=== PATIENT | male | born 1965 | race African-American/Black ===

== ENCOUNTER 2017-12-12 14:12 | Emergency (ER) | payer SELFPAY ==
[~2017-12-12] VITALS: Ht 180.3 cm; Wt 81.6 kg
[2017-12-12 14:33] VITALS: BP 122/83
[2017-12-12 15:41] LABS: Urine Bacteria NONE SEEN /hpf (None Seen); Urine Blood Negative /uL (Negative); Urine Sperm PRESENT /hpf (None Seen); Urine WBC 1 /hpf (0 - 3)
== END 2017-12-12 15:54 | disposition home or self-care (01) ==
LOC: ER 14:12
DX: M79.1 Myalgia (principal); M54.9 Dorsalgia, unspecified; G89.29 Other chronic pain
CPT/HCPCS: 72100; 74176; 81001

== ENCOUNTER 2018-02-18 08:44 | Emergency (ER) | payer MEDICAID, OTHER ==
[~2018-02-18] VITALS: Ht 180.3 cm; Wt 83.9 kg
[2018-02-18 09:47] LABS: Basophils # (auto) 0.1 uL; Basophils % (auto) 1.2 % (0.0-2.0); Eosinophils # (auto) 0.2 uL; Eosinophils % (auto) 2.9 % (0.0-7.0); Hematocrit 42.6 % (41.0-53.0); Hemoglobin 14.3 g/dL (13.5-17.5); Lymphocytes # (auto) 2.1 uL; Lymphocytes % (auto) 26.7 % (10.0-50.0); Mean Corpuscular Hemoglobin 31.2 pg (28.0-32.0); Mean Corpuscular Hgb Conc. 33.6 g/dL (32.0-36.0); Mean Corpuscular Volume 92.8 fL (80.0-100.0); Monocytes # (auto) 0.4 uL; Monocytes % (auto) 5.6 % (0.0-12.0); Neutrophils # (auto) 4.9 uL; Neutrophils % (auto) 63.6 % (37.0-80.0); Platelet Count (auto) 272 10^3/uL (140-450); Red Blood Cells 4.59 10^6/uL (4.5-5.90); Red Cell Distribution Width 14.2 % (11.8-14.3); White Blood Cell 7.7 10^3/uL (4.4-10.8)
[2018-02-18] MEDS ORDERED: SODIUM CHLORIDE 0.9% 500 ML IV ONE (09:54)
[2018-02-18] MEDS ORDERED: SODIUM CHLORIDE 0.9% 1,000 ML IV ONE (09:54)
[2018-02-18] MEDS ORDERED: METOCLOPRAMIDE HCL 5MG/ml INJ 2ml VIAL IV ONE (10:00)
[2018-02-18] MEDS ORDERED: DEXAMETHASONE SOD PHOS 4 MG/1ML SDV INJ IV ONE (10:00)
[2018-02-18] MEDS ORDERED: KETOROLAC TROMETH 30 MG/ML 1ML VIAL IV ONE (10:00)
[2018-02-18 10:02] LABS: Urine WBC None Seen /hpf (0 - 3)
[2018-02-18 10:04] LABS: Alanine Aminotransferase 12 U/L (16-61); Albumin 3.5 g/dL (3.4-5.0); Anion Gap 7 (5-15); Aspartate Aminotransferase 15 U/L (15-37); BUN/Creatinine Ratio 11.9; Blood Urea Nitrogen 14 mg/dL (7-18); Calcium 8.2 mg/dL (8.5-10.1); Carbon Dioxide 23 mmol/L (21-32); Chloride 110 mmol/L (98-107); GFR African American 84 mL/min; GFR Non-African American 69 mL/min; Glucose 116 mg/dL (74-106); Potassium 4.1 mmol/L (3.5-5.1); Sodium 140 mmol/L (136-145)
[2018-02-18 10:07] LABS: Alkaline Phosphatase 92 U/L (45-117); Bilirubin, Total 0.2 mg/dL (0.2-1.0); Total Protein 7.3 g/dL (6.4-8.2)
[2018-02-18 10:10] VITALS: BP 128/90
[2018-02-18 10:23] LABS: Urine Bacteria NONE SEEN /hpf (None Seen); Urine Blood Negative /uL (Negative); Urine Mucus FEW (None Seen); Urine Specific Gravity 1.019 (1.001-1.035)
== END 2018-02-18 11:27 | disposition home or self-care (01) ==
LOC: ER 08:44
DX: M47.892 Other spondylosis, cervical region (principal); M54.12 Radiculopathy, cervical region; F12.10 Cannabis abuse, uncomplicated
CPT/HCPCS: 36415; 71046; 72125; 80053; 81001; 83735; 84484; 85025; 93005; 96374; 96375; 99285; J1100; J1885; J2765; J7030

== ENCOUNTER 2024-03-23 07:54 | Inpatient (IN) | payer OTHER ==
[~2024-03-23] VITALS: Ht 180.3 cm; Wt 92.9 kg
--- NOTE | 2024-03-23 08:07 | ECG ---
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
[2024-03-23 08:24] LABS: Basophils # (auto) 0.1 10 ^3/uL (0-0.2); Basophils % (auto) 0.6 % (0.0-2.0); Eosinophils # (auto) 0.2 10 ^3/uL (0-0.8); Lymphocytes # (auto) 2.1 10 ^3/uL (0.4-5.4); Lymphocytes % (auto) 21.5 % (10.0-50.0); Mean Corpuscular Hemoglobin 31.5 pg (28.0-32.0); Mean Corpuscular Volume 92.7 fL (80.0-100.0); Monocytes # (auto) 0.7 10 ^3/uL (0-1.3); Neutrophils # (auto) 6.6 10 ^3/uL (1.6-8.6); Neutrophils % (auto) 68.9 % (37.0-80.0); Nucleated Red Blood Cells % 0.2 %; Platelet Count (auto) 261 10^3/uL (140-450); Red Blood Cells 4.75 10^6/uL (4.5-5.90); Red Cell Distribution Width 14.2 % (11.8-14.3); White Blood Cell 9.6 10^3/uL (4.4-10.8)
--- NOTE | 2024-03-23 08:26 | ED.PDOC ---
HPI Comments 58Y M with PMHx back surgery presents to ED for chief complaint chest pain x3days. Pt described chest pain as squeezing and non-radiating. Pt states he woke up, walked down the stairs, and began to experience the chest pain and dizziness. Pt initially thought chest pain was related to cold but the cough has resolved and he is still experiencing the chest pain. Pt's PCP is Dr. Padilla. Pt smokes cigarettes. Pt denies alcohol and illicit drug use. No known allergies. Chief Complaint: Dizziness Time Seen by MD: 08:11 Primary Care Provider: BIA Allred Notes: Medications, Allergies Allergies: Coded Allergies: No Known Drug Allergy (Verified Allergy, Unknown, 12/12/17) Information Source: Patient Mode of Arrival: Ambulatory Severity: Mild Timing: Hours Duration: Since onset Location: Substernal Radiation: No Radiation Quality: Squeezing Onset: With Light Exertion Cardiac Risk Factors: Smoker PE Risk Factors: None History of: None Modifying Factors: Nothing Associated Signs and Symptoms: Other Past Medical History PAST MEDICAL HISTORY: Denies Surgical History (Other): Back surgery Family History Family History: Unknown Social History Smoker: Cigarettes Alcohol: Denies ETOH Use Drugs: Denies Drug Use Lives In: Home Constitutional: denies: chills, diaphoresis, fatigue, fever, malaise, sweats, weakness, others EENTM: denies: blurred vision, double vision, ear bleeding, ear discharge, ear drainage, ear pain, ear ringing, eye pain, eye redness, hearing loss, mouth pain, mouth swelling, nasal discharge, nose bleeding, nose congestion, nose pain, photophobia, tearing, throat pain, throat swelling, voice changes, others Respiratory: denies: cough, hemoptysis, orthopnea, SOB at rest, shortness of breath, SOB with excertion, stridor, wheezing, others Cardiovascular: reports: chest pain; denies: dizzy spells, diaphoresis, Dyspnea on exertion, edema, irregular heart beat, left arm pain, lightheadedness, palpitations, PND, syncope, others Gastrointestinal: denies: abdomen distended, abdominal pain, blood streaked bowels, constipated, diarrhea, dysphagia, difficulty swallowing, hematemesis, melena, nausea, poor appetite, poor fluid intake, rectal bleeding, rectal pain, vomiting, others Genitourinary: denies: burning, dysuria, flank pain, frequency, hematuria, inco ntinence, penile discharge, penile sore, pain, testicle pain, testicle swelling, urgency, others Neurological: reports: dizziness; denies: fainting, headache, left sided numbness, left sided weakness, numbness, paresthesia, pre-existing deficit, right sided numbness, right sided weakness, seizure, speech problems, tingling, tremors, weakness, others Musculoskeletal: denies: back pain, gout, joint pain, joint swelling, muscle pain, muscle stiffness, neck pain, others Integumetry: denies: bruises, change in color, change in hair/nails, dryness, laceration, lesions, lumps, rash, wounds, others Allergic/Immunocompromised: denies: Difficulty Healing, Frequent Infections, Hives, Itching, others Hematologic/Lymphatic: denies: anemia, blood clots, easy bleeding, easy bruising, swollen glands, others Endocrine: denies: excessive hunger, excessive sweating, excessive thirst, excessive urination, flushing, intolerance to cold, intolerance to heat, unexplained weight gain, unexplained weight loss, others Psychiatric: denies: anxiety, bipolar disorder, depression, hopeless, panic disorder, schizophrenia, sleepless, suicidal, others All Other Systems: Reviewed and Negative Physical Exam General Appearance: Moderate Distress, Normal HEENT: Normal ENT Inspection, Pharynx Normal, TMs Normal Neck: Full Range of Motion, Non-Tender, Normal, Normal Inspection Respiratory: Chest Non-Tender, Lungs Clear, No Accessory Muscle Use, No Respiratory Distress, Normal Breath Sounds Cardiovascular: No Edema, No JVD, No Murmur, No Gallop, Normal Peripheral Pulses, Regular Rate/Rhythm Breast Exam: Deferred Gastrointestinal: No Organomegaly, Non Tender, No Pulsatile Mass, Normal Bowel Sounds, Soft Genitalia: Deferred Pelvic: Deferred Rectal: Deferred Extremities: No calf tenderness, Normal capillary refill, Normal inspection, Normal range of motion, Non-tender, No pedal edema Musculoskeletal : Apperance: Normal Neurologic: Alert, eyelet machine operator II-XII nml as Tested, No Motor Deficits, Normal Affect, Normal Mood, No Sensory Deficits Cerebellar Function: Normal Reflexes: Normal Skin: Dry, Normal Color, Warm Peripheral Pulses: 3+ Radial (R), 3+ Radial (L) Lymphatic: No Adenopathy Was a procedure done? Was a procedure done?: No CP Differential Dx Differential Diagnosis: A-fib, A-Flutter, Angina, Anxiety / Panic Attack, Atrial Dysrhythmia, Electrolyte Disorder X-Ray, Labs, Meds, VS Vital Signs Date Time Temp Pulse Resp B/P (MAP) Pulse Ox O2 Delivery O2 Flow Rate FiO2 03/23/24 08:12 98.0 70 18 146/99 (115) 98 03/23/24 08:02 70 Lab Test 03/23/24 08:08 Range/Units White Blood Count 9.6 4.4-10.8 10^3/uL Red Blood Count 4.75 4.5-5.90 10^6/uL Hemoglobin 15.0 13.5-17.5 g/dL Hematocrit 44.0 41.0-53.0 % Mean Corpuscular Volume 92.7 80.0-100.0 fL Mean Corpuscular Hemoglobin 31.5 28.0-32.0 pg Mean Corpuscular Hemoglobin Concent 34.0 32.0-36.0 g/dL Red Cell Distribution Width 14.2 11.8-14.3 % Platelet Count 261 140-450 10^3/uL Mean Platelet Volume 8.1 6.9-10.8 fL Neutrophils (%) (Auto) 68.9 37.0-80.0 % Lymphocytes (%) (Auto) 21.5 10.0-50.0 % Monocytes (%) (Auto) 7.0 0.0-12.0 % Eosinophils (%) (Auto) 2.0 0.0-7.0 % Basophils (%) (Auto) 0.6 0.0-2.0 % Neutrophils # (Auto) 6.6 1.6-8.6 10 ^3/uL Lymphocytes # (Auto) 2.1 0.4-5.4 10 ^3/uL Monocytes # (Auto) 0.7 0-1.3 10 ^3/uL Eosinophils # (Auto) 0.2 0-0.8 10 ^3/uL Basophils # (Auto) 0.1 0-0.2 10 ^3/uL Nucleated Red Blood Cells 0.2 % Sodium Level Pending Potassium Level Pending Chloride Level Pending Carbon Dioxide Level Pending Anion Gap Pending Blood Urea Nitrogen Pending Creatinine Pending Glomerular Filtration Rate Calc Pending BUN/Creatinine Ratio Pending Serum Glucose Pending Calcium Level Pending Total Bilirubin Pending Aspartate Amino Transferase (AST) Pending Alanine Aminotransferase (ALT) Pending Alkaline Phosphatase Pending Troponin I High Sensitivity Pending Total Protein Pending Albumin Pending Patient alert. Complaining of chest pain. Vitals stable. Answering all questions. EKG reviewed does show changes. Continues to smoke cigarettes. Counseled patient on effects of smoking cigarettes for 15 minutes. Reviewed his history. WBC within normal limits. Hemoglobin within normal limits. Blood pressure slightly elevated. Risk factors for coronary artery disease. Explained to the patient. Continue cardiac monitoring. Time of 1ST Reevaluation: 08:41 Reevaluation 1ST: Unchanged Patient Education/Counseling: Diagnosis, Treatment Family Education/Counseling: No Family Present Departure 1 Departure Time of Disposition: 08:28 Impression: Primary Impression: Chest pain of unknown etiology Additional Impression: Hypertension Qualified Codes: I10 - Essential (primary) hypertension Disposition: ADMITTED INPATIENT Admit to: Med Surg Condition: Guarded Critical Care Note Critical Care Time?: Yes (45 min-critical care time only) Stability Stability form required: No Heart Score Heart Score: Heart Score Response (Comments) Value History Slightly Suspicious 0 EKG Normal 0 Age 45-64 1 Risk Factors 1 or 2 risk factors 1 Troponin Normal limit 0 Total 2 I personally scribed for PJ ALBERTO MD ([email or web address]) on 03/23/24 at 08:26. Electronically submitted by Melissa Figueroa ([email or web address]). PJ ALBERTO MD Mar 23, 2024 08:26
[2024-03-23] MEDS: ASPirin 325 MG TAB PO ONE (08:30)
[2024-03-23 08:34] VITALS: PULSE 65; RESP 17; O2SAT 95
[2024-03-23 08:42] LABS: Albumin 4.5 g/dL (3.2-4.8); Alkaline Phosphatase 81 U/L (46-116); Anion Gap 6 (5-15); Aspartate Aminotransferase 15 U/L (13-40); BUN/Creatinine Ratio 11.6 (10.0-20.0); Bilirubin, Total 0.4 mg/dL (0.2-1.0); Blood Urea Nitrogen 13 mg/dL (9-23); Calcium 10.1 mg/dL (8.7-10.4); Carbon Dioxide 28 mmol/L (20-31); Chloride 109 mmol/L (98-107); Glucose 94 mg/dL (74-106); Potassium 3.8 mmol/L (3.5-5.1); Sodium 143 mmol/L (136-145); Total Protein 7.2 g/dL (5.7-8.2)
[2024-03-23 08:48] LABS: Alanine Aminotransferase < 9 U/L (7-40)
--- NOTE | 2024-03-23 09:02 | ECG ---
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
[2024-03-23] MEDS: ENOXAPARIN SOD 80 MG/0.8ML SYRINGE SC ONE (09:12)
[2024-03-23 09:25] VITALS: BP 141/91; PULSE 66; RESP 18; TEMP 97.6; O2SAT 99
[2024-03-23] MEDS ORDERED: DIAZ5TAB3 PO (10:44)
[2024-03-23] MEDS ORDERED: OMEP1CAP70 PO (10:44)
[2024-03-23] MEDS ORDERED: NALO1TAB4 PO (10:44)
[2024-03-23] MEDS ORDERED: ERGO1CAP12 PO (10:44)
[2024-03-23] MEDS ORDERED: ERGOCALCIFEROL 50,000 UNIT(1.25MG) CAP PO SCH (10:45)
--- NOTE | 2024-03-23 11:00 | ECG ---
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
--- NOTE | 2024-03-23 11:03 | DVHHP2 ---
History of Present Illness Reason for Visit: #ACS History of Present Illness This is a 58Y M with PMHx back surgery presents to ED for chief complaint chest pain associated with diaphoresis x4 days. Pt described chest pain as squeezing and non-radiating. Pt states he woke up, walked down the stairs, and began to experience the chest pain and dizziness. Pt initially thought chest pain was related to cold but the cough has resolved and he is still experiencing the chest pain. The patient rates pain as 10/10 on pain scale one through 10. Upon evaluation in the patient denied chest pain at the time. He states no recent injury or trauma to his chest, illicit drug use but does complain of increased life stressors. He denied having any of these symptoms in the past and would like to be further evaluated and treated. The patient we will be admitted under hospitalist care to the telemetry unit for continuous monitoring. The patient denies headache, nausea, vomiting, dizziness, shortness of breath, abdominal pain, diarrhea, constipation and other associated symptoms. The plan has been discussed with the patient and primary RN in which all questions concerns have been addressed. Pulmonary: Asthma, COPD Past Surgical History Back surgery Family History: None Smoke: <1 pack per day ALCOHOL: none Drugs: None Lives: with Family Domestic Violence: Neg Review of Systems Constitutional: Yes: Sweats Cardiovascular: Chest Pain Allergies: Coded Allergies: No Known Drug Allergy (Verified Allergy, Unknown, 12/12/17) Medications Current Medications Medications Dose Ordered Sig/Cris Route Start Time Stop Time Status Last Admin Dose Admin Sodium Chloride 1,000 ml @ 60 mls/hr [id number] IV 03/23/24 10:45 UNV Enoxaparin Sodium 40 mg DAILY SC 03/24/24 10:00 UNV Acetaminophen 650 mg Q6HP PRN PO 03/23/24 10:45 UNV Nitroglycerin 0.4 mg Q5MINP PRN SL 03/23/24 10:45 UNV Morphine Sulfate 2 mg Q30M PRN IV 03/23/24 10:45 UNV Diazepam 5 mg HS PO 03/23/24 22:00 UNV Ergocalciferol 50,000 unit QWEEKLY PO 03/23/24 10:45 UNV Patient Own Medication 1 cap BID PO 03/23/24 22:00 UNV Exam Vital Signs Vital Signs Date Time Temp Pulse Resp B/P (MAP) Pulse Ox O2 Delivery O2 Flow Rate FiO2 03/23/24 09:25 97.6 66 18 141/91 (108) 99 97.6 03/23/24 08:34 Room Air* 0 21 General Appearance: Alert, Oriented X3, Cooperative HEENT: Atraumatic, PERRLA, EOMI, Mucous membr. moist/pink Respiratory: Clear to auscultation, Normal air movement Cardiovascular: Normal S1, Normal S2, No murmurs Abdominal: Normal bowel sounds, Soft, No tenderness, No hepatospenomegaly, No masses Extremities: No clubbing, No cyanosis, No edema, Normal pulses, No tenderness/swelling Skin: No rashes, No breakdown Neuro: Normal gait, Normal speech, Strength at 5/5 X4 ext, Sensation intact, Cranial nerves 3-12 NL, Reflexes 2+ Psych/Mental Status: Mental status NL Labs/Xrays Labs Test 03/23/24 09:01 03/23/24 08:08 Range/Units Troponin I High Sensitivity 60 *H </=54 ng/L White Blood Count 9.6 4.4-10.8 10^3/uL Red Blood Count 4.75 4.5-5.90 10^6/uL Hemoglobin 15.0 13.5-17.5 g/dL Hematocrit 44.0 41.0-53.0 % Mean Corpuscular Volume 92.7 80.0-100.0 fL Mean Corpuscular Hemoglobin 31.5 28.0-32.0 pg Mean Corpuscular Hemoglobin Concent 34.0 32.0-36.0 g/dL Red Cell Distribution Width 14.2 11.8-14.3 % Platelet Count 261 140-450 10^3/uL Mean Platelet Volume 8.1 6.9-10.8 fL Neutrophils (%) (Auto) 68.9 37.0-80.0 % Lymphocytes (%) (Auto) 21.5 10.0-50.0 % Monocytes (%) (Auto) 7.0 0.0-12.0 % Eosinophils (%) (Auto) 2.0 0.0-7.0 % Basophils (%) (Auto) 0.6 0.0-2.0 % Neutrophils # (Auto) 6.6 1.6-8.6 10 ^3/uL Lymphocytes # (Auto) 2.1 0.4-5.4 10 ^3/uL Monocytes # (Auto) 0.7 0-1.3 10 ^3/uL Eosinophils # (Auto) 0.2 0-0.8 10 ^3/uL Basophils # (Auto) 0.1 0-0.2 10 ^3/uL Nucleated Red Blood Cells 0.2 % Sodium Level 143 136-145 mmol/L Potassium Level 3.8 3.5-5.1 mmol/L Chloride Level 109 H 98-107 mmol/L Carbon Dioxide Level 28 20-31 mmol/L Anion Gap 6 5-15 Blood Urea Nitrogen 13 9-23 mg/dL Creatinine 1.12 0.700-1.30 mg/dL Glomerular Filtration Rate Calc 77 >90 mL/min BUN/Creatinine Ratio 11.6 10.0-20.0 Serum Glucose 94 74-106 mg/dL Calcium Level 10.1 8.7-10.4 mg/dL Total Bilirubin 0.4 0.2-1.0 mg/dL Aspartate Amino Transferase (AST) 15 13-40 U/L Alanine Aminotransferase (ALT) < 9 7-40 U/L Alkaline Phosphatase 81 46-116 U/L Total Protein 7.2 5.7-8.2 g/dL Albumin 4.5 3.2-4.8 g/dL Assessment/Plan Assessment/Plan ACS---patient's complaint of 10/10 chest pain described as squeezing in nature associated with diaphoresis without radiation x4 days No recent injury/trauma/illicit drug use Life stressor present No previous cardiac workup History of asthma and COPD current smoker less than one pack of cigarette a day Admit to telemetry unit for continuous monitoring Troponin 55, 60 pending 3rd Reviewed CBC within normal limits Reviewed BMP which is normal Cardiology consult with Dr. Melendrez has been initiated--? Stress test TSH pending Lipid panel pending Aspirin now and daily Echocardiogram pending Reconcile home meds DVT prophylaxis PUD prophylaxis not indicated no history of GERD Labs in a.m. Discussed plan of care with the patient in which all questions concerns have been addressed Plan discussed with: Patient My Orders Orders - PENNY WOOD Procedure Category Date Status Time * Cardiology Consult CONS 03/23/24 Transmitted 10:09 Drug Screen LAB 03/23/24 Logged 10:40 Admit ADMIT 03/23/24 Transmitted 10:40 2 Gm Sodium Diet DIET 03/23/24 Transmitted Lunch Sodium Chloride 0.9% PHA 03/23/24 Logged 10:45 Enoxaparin Sodium PHA 03/24/24 Logged (Lovenox) 10:00 Complete Blood Count LAB 03/24/24 Verified 04:00 Comprehensive LAB 03/24/24 Verified Metabolic Panel 04:00 Echo 2d Mode Cardiac US 03/23/24 Logged DOP 10:40 Condition: Fair [facility] 03/23/24 In Process 10:40 Acetaminophen Tablet [facility] 03/23/24 Logged (Tylenol Tablet) 10:45 Bedrest With Bathroom [facility] 03/23/24 In Process Privileg 10:40 Nitroglycerin [facility] 03/23/24 Logged Sublingual (Ntrostat 10:45 Morphine Sulfate [facility] 03/23/24 Logged Injection 10:45 Stat Ekg For Chest [facility] 03/23/24 In Process Pain 10:40 Notify Md Of Changes [facility] 03/23/24 In Process From Base 10:40 Consumer Relations Specialist For [facility] 03/23/24 In Process 24 Hours 10:40 Emergency Dysrhythmia [facility] 03/23/24 In Process Protocol 10:40 Rhythm Strips Once [facility] 03/23/24 In Process Every Shift 10:40 Oxygen By Nasal RT 03/23/24 Transmitted Cannula 10:40 Thyroid Stimulating LAB 03/23/24 Logged Hormone 10:40 Lipid Panel LAB 03/23/24 Logged 10:42 Diazepam Tablet [facility] 03/23/24 Logged (Valium Tablet) 22:00 Ergocalciferol [facility] 03/23/24 Logged (Vitamin D 50,000 10:45 (Nf) Omeprazole [facility] 03/23/24 Logged (Omeprazole Dr) 22:00 Date of Service: Mar 23, 2024 Billing Provider: PENNY WOOD Common Visit Codes: [id number] INP/OBS CARE (HIGH) PENNY WOODP Mar 23, 2024 11:02
[2024-03-23 11:07] VITALS: PULSE 66; RESP 14; O2SAT 97
[2024-03-23] MEDS: SODIUM CHLORIDE 0.9% 1,000 ML IV SCH (11:25)
[2024-03-23 12:04] LABS: Triglycerides 149 mg/dL (< 150)
[2024-03-23 12:05] LABS: LDL Cholesterol 161 mg/dL (< 100)
[2024-03-23 12:06] LABS: Cholesterol 219 mg/dL (< 200); HDL Cholesterol 40 mg/dL (40-59)
[2024-03-23] MEDS: HYDROcodone-ACET 10/325MG TAB PO ONE (12:52)
[2024-03-23] MEDS: KETOROLAC TROMETH 30 MG/ML 1ML VIAL IV ONE (13:45)
--- NOTE | 2024-03-23 14:19 | DVH ---
CHEST RADIOGRAPH Indication:CP Technique: Single frontal view of the chest was obtained COMPARISON: None FINDINGS: Lines and Tubes: None Lungs: Clear Pleura: No effusion. No pneumothorax. Cardiomediastinal contours: Unremarkable Bones: Unremarkable IMPRESSION: No acute disease.
[2024-03-23] MEDS: NITROGLYCERIN 0.4 MG SL TAB SL PRN (16:20)
[2024-03-23 18:58] LABS: Barbiturate Scree,Urine Neg (NEGATIVE); Benzodiazephine Screen, Urine Neg (NEGATIVE); Cocaine Screen, Urine Neg (NEGATIVE); Opiate Scree,Urine Pos (NEGATIVE)
[2024-03-23 18:59] LABS: Amphetamine Screen, Urine Neg (NEGATIVE); Cannabinoid Screen, Urine Neg (NEGATIVE); Phencyclidine Screen, Urine Neg (NEGATIVE)
[2024-03-23] MEDS: HYDROcodone-ACET 10/325MG TAB PO PRN (19:19)
[2024-03-23 19:45] VITALS: PULSE 58; RESP 17; O2SAT 96
[2024-03-23] MEDS: MORPHINE SULFATE INJ 2 MG/ml SYRG IV PRN (20:28)
[2024-03-23 21:00] VITALS: BP 161/90; PULSE 63; RESP 17; TEMP 98.4; O2SAT 100
[2024-03-23] MEDS: ATORVASTATIN 20 MG TAB PO SCH (22:15)
[2024-03-23] MEDS: ENOXAPARIN SOD 100 MG/1 ML SYRINGE SC SCH (22:15)
[2024-03-23] MEDS: diazePAM 5 MG TAB PO SCH (22:15)
--- NOTE | 2024-03-23 22:38 | ECG ---
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
[2024-03-24] VITALS (8 sets, daily range): BP systolic 118–143; BP diastolic 68–93; PULSE 59–80; RESP 16–20; TEMP 97.5–98.5; O2SAT 98–100
[2024-03-24 06:34] LABS: Basophils # (auto) 0.1 10 ^3/uL (0-0.2); Basophils % (auto) 0.6 % (0.0-2.0); Eosinophils # (auto) 0.2 10 ^3/uL (0-0.8); Eosinophils % (auto) 2.3 % (0.0-7.0); Hematocrit 40.1 % (41.0-53.0); Hemoglobin 13.5 g/dL (13.5-17.5); Lymphocytes # (auto) 2.6 10 ^3/uL (0.4-5.4); Lymphocytes % (auto) 26.6 % (10.0-50.0); Mean Corpuscular Hgb Conc. 33.6 g/dL (32.0-36.0); Mean Corpuscular Volume 92.2 fL (80.0-100.0); Monocytes # (auto) 0.5 10 ^3/uL (0-1.3); Monocytes % (auto) 5.5 % (0.0-12.0); Neutrophils # (auto) 6.4 10 ^3/uL (1.6-8.6); Nucleated Red Blood Cells % 0.2 %; Platelet Count (auto) 243 10^3/uL (140-450); Red Blood Cells 4.35 10^6/uL (4.5-5.90); Red Cell Distribution Width 13.8 % (11.8-14.3); White Blood Cell 9.9 10^3/uL (4.4-10.8)
[2024-03-24 06:51] LABS: Albumin 3.9 g/dL (3.2-4.8); Alkaline Phosphatase 75 U/L (46-116); Anion Gap 7 (5-15); Aspartate Aminotransferase 11 U/L (13-40); Bilirubin, Total 0.2 mg/dL (0.2-1.0); Blood Urea Nitrogen 19 mg/dL (9-23); Calcium 9.5 mg/dL (8.7-10.4); Carbon Dioxide 23 mmol/L (20-31); Chloride 111 mmol/L (98-107); Glucose 92 mg/dL (74-106); Potassium 4.2 mmol/L (3.5-5.1); Sodium 141 mmol/L (136-145); Total Protein 5.9 g/dL (5.7-8.2)
[2024-03-24 06:52] LABS: Alanine Aminotransferase < 9 U/L (7-40)
--- NOTE | 2024-03-24 06:58 | DVHINCON2 ---
Date Seen: Mar 23, 2024 Referring Physician Micaela LEWIS Reason for Consultation NSTEMI History of Present Illness 58-year-old male with PMH for chronic lower back pain on [place] and occasional tobacco use presents to the hospital with chest pain. Patient stated that he started with cough and congestion 3 days prior and started to have greenish sputum that has been since resolving. Patient noted to become a little short of breath and had some chest tightness when laying down in bed the day prior to presentation. On the day of presentation patient noted that he was downstairs and quickly ran upstairs to grab a sweater and started to feel some chest tightness again though when he came back downstairs was sitting at the table and CP became so excruciating 02/14 that patient decided to come to the hospital. Chest tightness noted to be retrosternal, radiating to left axillary area, pressure in nature intermittent with exertion and also at rest. Denies any other cardiac symptoms of shortness of breath, palpitations, diaphoresis, lightheadedness. Patient denies being blood pressure medication was told he was prediabetic and just being treated with diet. Upon evaluation in the ER patient noted to have mildly elevated troponins trending 55, 60, 61. EKG reviewed and shows sinus rhythm, anterolateral T-wave abnormality, possible Wellen's sign. Past Medical History Chronic back pain. Past Surgical History Spine surgery Family History: Patient reports no known family medical history. Family History Denies pertinent family cardiac history Social History Occasional tobacco use. Denies alcohol or illicit drug use. Allergies: Coded Allergies: No Known Drug Allergy (Verified Allergy, Unknown, 12/12/17) Home Meds Reported Medications Naloxegol Oxalate (Movantik) 25 Mg Tab, 1 TAB PO DAILY 03/23/24 Diazepam (Diazepam) 5 Mg Tab, PO 03/23/24 Ergocalciferol (Vitamin D) 50,000 Unit Cap, 1 CAP PO QWEEKLY 03/23/24 Omeprazole (Omeprazole Dr) 20 Mg Cap, 1 CAP PO BID 03/23/24 Current Medications Current Medications Medications (Trade) Dose Ordered Sig/Cris Route PRN Reason Start Time Stop Time Status Last Admin Sodium Chloride 1,000 ml @ 60 mls/hr [id number] IV 03/23/24 10:45 03/23/24 11:25 Enoxaparin Sodium (Lovenox) 40 mg DAILY SC 03/24/24 10:00 Acetaminophen (Tylenol Tablet) 650 mg Q6HP PRN PO PAIN SCALE 1-3 OR TEMP>100.4 03/23/24 10:45 Nitroglycerin (Ntrostat Sublingual) 0.4 mg Q5MINP PRN SL FOR CHEST PAIN 03/23/24 10:45 Morphine Sulfate 2 mg Q30M PRN IV FOR CHEST PAIN 03/23/24 10:45 Diazepam (Valium Tablet) 5 mg HS PO 03/23/24 22:00 Ergocalciferol (Vitamin D 50,000 Unit) 50,000 unit QWEEKLY PO 03/23/24 10:45 Pantoprazole Sodium (Protonix Tablet) 40 mg DAILY PO 03/24/24 10:00 Aspirin 81 mg DAILY PO 03/24/24 10:00 Review of Systems Constitutional: No: Fever, Chills, Sweats, Weakness, Malaise, Other Eyes: No: Pain, Vision change, Conjunctivae inflammation, Eyelid inflammation, Other, Redness ENT: No: Ear pain, Ear discharge, Nose pain, Nose discharge, Nose congestion, Mouth pain, Mouth swelling, Throat pain, Throat swelling, Other Respiratory: No: , Dry, Shortness of breath, SOB with exertion, Wheezing, H emoptysis, Pleuritic Pain, Sputum, Wheezing, Other positive: Cough, congestion Cardiovascular: ; No: Palpitations, Orthopnea, Paroxysmal Noc. Dyspnea, Edema, Lt Headedness, Other positive: Intermittent Chest Pain Gastrointestinal: No: Nausea, Vomiting, Abdominal Pain, Diarrhea, Constipation, Melena, Hematochezia, Other Genitourinary: No Dysuria, No Frequency, No Incontinence, No Hematuria, No Retention, No Other Musculoskeletal: neck pain; No: other, shoulder pain, arm pain, back pain, hand pain, leg pain, foot pain Skin: No: Rash, Lesions, Jaundice, Bruising, Other Neurological: Other (Dizziness, headache.); No: Weakness, Numbness, Incoordination, Change in speech, Confusion, Seizures Vital Signs Vital Signs Date Time Temp Pulse Resp B/P (MAP) Pulse Ox O2 Delivery O2 Flow Rate FiO2 03/23/24 13:25 72 14 122/79 (93) 99 03/23/24 09:25 97.6 97.6 03/23/24 08:34 Room Air* 0 21 Physical Exam General appearance: Patient is well-developed, well-nourished, in no acute distress. HEENT: Exam shows: Normocephalic, atraumatic, PERRLA, EOMI Neck: Supple, no bruits Chest: Equal chest excursion bilaterally. Breath sounds rhonchi. Heart: Rhythm: Regular rate; no murmur or gallop Abdomen: Exam shows: Soft, nontender, nondistended Musculoskeletal: No clubbing, no cyanosis, no lower extremity edema Dermatology: Skin warm, moist. Neurological: Exam shows: Alert and oriented x4, normal speech Available prior records, labs, EKG, rhythm strips reviewed and interpreted Labs/Diagnostic Data Labs Test 03/23/24 11:00 03/23/24 09:01 03/23/24 08:08 Range/Units Troponin I High Sensitivity 61 *H </=54 ng/L Triglycerides Level 149 < 150 mg/dL Cholesterol Level 219 H < 200 mg/dL LDL Cholesterol 161 H < 100 mg/dL HDL Cholesterol 40 40-59 mg/dL Thyroid Stimulating Hormone (TSH) 0.83 0.55-4.78 uIU/mL White Blood Count 9.6 4.4-10.8 10^3/uL Red Blood Count 4.75 4.5-5.90 10^6/uL Hemoglobin 15.0 13.5-17.5 g/dL Hematocrit 44.0 41.0-53.0 % Mean Corpuscular Volume 92.7 80.0-100.0 fL Mean Corpuscular Hemoglobin 31.5 28.0-32.0 pg Mean Corpuscular Hemoglobin Concent 34.0 32.0-36.0 g/dL Red Cell Distribution Width 14.2 11.8-14.3 % Platelet Count 261 140-450 10^3/uL Mean Platelet Volume 8.1 6.9-10.8 fL Neutrophils (%) (Auto) 68.9 37.0-80.0 % Lymphocytes (%) (Auto) 21.5 10.0-50.0 % Monocytes (%) (Auto) 7.0 0.0-12.0 % Eosinophils (%) (Auto) 2.0 0.0-7.0 % Basophils (%) (Auto) 0.6 0.0-2.0 % Neutrophils # (Auto) 6.6 1.6-8.6 10 ^3/uL Lymphocytes # (Auto) 2.1 0.4-5.4 10 ^3/uL Monocytes # (Auto) 0.7 0-1.3 10 ^3/uL Eosinophils # (Auto) 0.2 0-0.8 10 ^3/uL Basophils # (Auto) 0.1 0-0.2 10 ^3/uL Nucleated Red Blood Cells 0.2 % Sodium Level 143 136-145 mmol/L Potassium Level 3.8 3.5-5.1 mmol/L Chloride Level 109 H 98-107 mmol/L Carbon Dioxide Level 28 20-31 mmol/L Anion Gap 6 5-15 Blood Urea Nitrogen 13 9-23 mg/dL Creatinine 1.12 0.700-1.30 mg/dL Glomerular Filtration Rate Calc 77 >90 mL/min BUN/Creatinine Ratio 11.6 10.0-20.0 Serum Glucose 94 74-106 mg/dL Calcium Level 10.1 8.7-10.4 mg/dL Total Bilirubin 0.4 0.2-1.0 mg/dL Aspartate Amino Transferase (AST) 15 13-40 U/L Alanine Aminotransferase (ALT) < 9 7-40 U/L Alkaline Phosphatase 81 46-116 U/L Total Protein 7.2 5.7-8.2 g/dL Albumin 4.5 3.2-4.8 g/dL Assessment * NSTEMI - continue trending troponins. EKG with anterior lateral ST and T-wave abnormality. Continue aspirin and statin. Follow-up echo. Recommend coronary angiogram was scheduled for Monday03/25/2024. NPO after midnight Monday03/24/2024. Continue on Lovenox full dose. * HTN - losartan. Trend * HLD - Statin * Chronic Back Pain - Management per primary team Case Discussed with Dr Melendrez. Ischemic workup with coronary angiogram. We will plan for Monday03/25/2024. Continue on aspirin and statin, full-dose Lovenox. Follow-up echo. Blood pressure management we will initiate on losartan 25 mg daily. Titrate as tolerated. Critical care, time spent: 45 minutes This medical document was created using an electronic medical record system with voice recognition software and computerized dictation system. Although this document has been carefully reviewed, there might still be some phonetic and typographical errors. Occasional wrong-word or ``sound-alike substitutions may have occurred due to the inherent limitations of voice recognition software. These areas are purely typographical due to imperfections of the software programs and do not reflect any compromise in the patient's medical care. Seng foley read the chart carefully and recognize, using context, where these substitutions have occurred. Plan discussed with: Patient Date of Service: Mar 23, 2024 Billing Provider: PAWAN SUMNER Cardiology Common Codes: [id number] INP/OBS CARE (High), [id number] CARE 30-74 MIN PAWAN SUMNER Mar 23, 2024 14:19
[2024-03-24] MEDS: ASPirin 81 mg TAB PO SCH (09:00)
[2024-03-24] MEDS: LOSARTAN POTASSIUM 25 MG TAB PO SCH (09:01)
[2024-03-24] MEDS: PANTOPRAZOLE 40 MG TAB PO SCH (09:01)
[2024-03-24] MEDS ORDERED: ENOXAPARIN SOD 40 MG/0.4 ML SYRINGE SC SCH (10:00)
--- NOTE | 2024-03-24 10:04 | DVHPN2 ---
Consult Progress Note Subjective Review of Systems: CVS:Abnormal (Continues to have intermittent Chest tightness while ambulating to bathroom. ) Other Systems: Denies SOB, Palpitations, Diaphoresis, Lightheadedness. Objective vital signs Vital Sign Date Time Temp Pulse Resp B/P (MAP) Pulse Ox O2 Delivery O2 Flow Rate FiO2 03/24/24 09:01 145/91 03/24/24 05:00 98.1 70 17 100 98.1 03/23/24 19:45 Room Air* 0 21 Total Intake and Output 03/23/24 03/23/24 03/24/24 15:00 23:00 07:00 Intake Total 180 ml 180 ml 480 ml Balance 180 ml 180 ml 480 ml medications Current Medications Medications Dose Ordered Sig/Cris Route Start Time Stop Time Status Last Admin Dose Admin Sodium Chloride 1,000 ml @ 60 mls/hr [id number] IV 03/23/24 10:45 03/24/24 09:06 60 MLS/HR Acetaminophen 650 mg Q6HP PRN PO 03/23/24 10:45 Nitroglycerin 0.4 mg Q5MINP PRN SL 03/23/24 10:45 03/23/24 16:20 0.4 MG Morphine Sulfate 2 mg Q30M PRN IV 03/23/24 10:45 03/24/24 01:55 2 MG Diazepam 5 mg HS PO 03/23/24 22:00 03/23/24 22:15 5 MG Ergocalciferol 50,000 unit QWEEKLY PO 03/23/24 10:45 Pantoprazole Sodium 40 mg DAILY PO 03/24/24 10:00 03/24/24 09:01 40 MG Aspirin 81 mg DAILY PO 03/24/24 10:00 03/24/24 09:00 81 MG Enoxaparin Sodium 80 mg Q12HR SC 03/23/24 22:00 03/24/24 09:02 80 MG Atorvastatin Calcium 40 mg HS PO 03/23/24 22:00 03/23/24 22:15 40 MG Losartan Potassium 25 mg DAILY PO 03/24/24 10:00 03/24/24 09:01 25 MG Acetaminophen/ Hydrocodone Bitart 1 tab Q8HP PRN PO 03/23/24 19:00 03/24/24 04:06 1 TAB Examination: LUNGS:Normal laboratory and microbiology Laboratory Tests 03/24/24 05:31 Test 03/24/24 05:31 Range/Units Serum Glucose 92 74-106 mg/dL Problem List/Assessment/Plan Problem List/Assessment/Plan Assessment * NSTEMI - continue trending troponins. EKG with anterior lateral ST and T-wave abnormality. Continue aspirin and statin. Follow-up echo. Recommend cardiac catheterization +/- PCI. All risks, benefits, and alternatives of cardiac catheterization explained to the patient including the risk of stroke, NV, , coronary perforation, pericardial tamponade, contrast induced nephropathy, need for emergent CABG, mechanical support, mechanical ventilation, and bleeding from vascular complications from the procedure. Patient is agreeable to proceed with procedure. NPO after midnight. Continue on Lovenox full dose. * HTN - On losartan, titrate as tolerated. Trend * HLD - Statin * Chronic Back Pain - Management per primary team Case Discussed with Dr Corey. Ischemic workup with coronary angiogram. Scheduled for tomorrow. Continue on aspirin and statin, full-dose Lovenox hold after p.m. dose. Follow-up echo. Blood pressure management continue losartan 25 mg daily. Titrate as tolerated. Critical care, time spent: 38 This medical document was created using an electronic medical record system with voice recognition software and computerized dictation system. Although this document has been carefully reviewed, there might still be some phonetic and typographical errors. Occasional wrong-word or ``sound-alike substitutions may have occurred due to the inherent limitations of voice recognition software. These areas are purely typographical due to imperfections of the software programs and do not reflect any compromise in the patient's medical care. Please read the chart carefully and recognize, using context, where these substitutions have occurred. Plan discussed with: Patient Date of Service: Mar 24, 2024 Billing Provider: SHAWNA COREY MD Common Visit Codes: [id number] INP/OBS CARE(HIGH), [id number] CARE 30-74 MIN PAWAN SUMNER [facility] Mar 24, 2024 10:04
--- NOTE | 2024-03-24 11:43 | DVHPNRES ---
Progress Note Date Seen: Mar 24, 2024 Resident Creating Document: MEGAN ARANA DELANEY Has the PT tested + for MRSA If YES, has PT been informed?: No Medical Necessity Reason Pt with a Central, PICC or Fol: No Subjective Review of Systems This is a 58-year-old male who presented to the emergency room with chest pain for 4 days. The patient reports constant central chest pain, non-radiating, squeezing, 10/10, increased with physical activity and improved with rest. He did not have such symptoms in the past. The patient has a history of sick contact with his son, who had an upper respiratory tract infection, and the patient also developed a green productive cough. He initially thought the chest pain was related to the cold, but the cough has resolved, and he is still experiencing chest pain. The patient also reports diaphoresis, nausea, and generalized weakness. He denies headache, vomiting, dizziness, shortness of breath, abdominal pain, diarrhea, constipation, and other associated symptoms. PMHx: Asthma, COPD (recommended to use inhaler, did not use) PSHx: Back surgery (due to traumatic injury) Family History: Noncontributory Social History: Current smoker (20 pack-year history) Home Medication: Hydrocodone (for back pain), naloxegol (for opioid-induced constipation), ergocalciferol Allergic History: Noncontributory The patient was seen and examined at the bedside. He is feeling better since admission but still reports chest pain during walking and going to the restroom. Patient reports: No new complaints Changes from previous H/P or p: No Changes Objective vital signs Vital Sign Date Time Temp Pulse Resp B/P (MAP) Pulse Ox O2 Delivery O2 Flow Rate FiO2 03/24/24 09:01 145/91 03/24/24 09:00 97.5 61 18 99 97.5 03/23/24 19:45 Room Air* 0 21 Total Intake and Output 03/23/24 03/23/24 03/24/24 15:00 23:00 07:00 Intake Total 180 ml 180 ml 480 ml Balance 180 ml 180 ml 480 ml medications Current Medications Medications Dose Ordered Sig/Cris Route Start Time Stop Time Status Last Admin Dose Admin Sodium Chloride 1,000 ml @ 60 mls/hr [id number] IV 03/23/24 10:45 03/24/24 09:06 60 MLS/HR Acetaminophen 650 mg Q6HP PRN PO 03/23/24 10:45 Nitroglycerin 0.4 mg Q5MINP PRN SL 03/23/24 10:45 03/23/24 16:20 0.4 MG Morphine Sulfate 2 mg Q30M PRN IV 03/23/24 10:45 03/24/24 01:55 2 MG Diazepam 5 mg HS PO 03/23/24 22:00 03/23/24 22:15 5 MG Ergocalciferol 50,000 unit QWEEKLY PO 03/23/24 10:45 Pantoprazole Sodium 40 mg DAILY PO 03/24/24 10:00 03/24/24 09:01 40 MG Aspirin 81 mg DAILY PO 03/24/24 10:00 03/24/24 09:00 81 MG Enoxaparin Sodium 80 mg Q12HR SC 03/23/24 22:00 03/24/24 23:59 03/24/24 09:02 80 MG Atorvastatin Calcium 40 mg HS PO 03/23/24 22:00 03/23/24 22:15 40 MG Acetaminophen/ Hydrocodone Bitart 1 tab Q8HP PRN PO 03/23/24 19:00 03/24/24 04:06 1 TAB Losartan Potassium 50 mg DAILY PO 03/25/24 10:00 Examination General Appearance: Alert, Oriented X3, Cooperative, No acute distress HEENT: Atraumatic, PERRLA, EOMI, Mucous membrane moist/pink Respiratory: Clear to auscultation, Normal air movement Cardiovascular: Regular rate, Normal S1, Normal S2, No murmurs, no chest wall tenderness Abdominal: Normal bowel sounds, Soft, No tenderness, No hepatospenomegaly, No masses Extremities: No clubbing, No cyanosis, No edema, Normal pulses, No tenderness/swelling Skin: No rashes, No breakdown, No significant lesion laboratory and microbiology Laboratory Tests 03/24/24 05:31 Test 03/24/24 05:31 Range/Units Serum Glucose 92 74-106 mg/dL Labs and/or images reviewed: Labs reviewed by me, Image(s) reviewed by me Problem List/Assessment/Plan Problem List/Assessment/Plan ACS, NSTEMI Aspirin 75 mg daily Atorvastatin 40 mg daily Nitroglycerin sublingually 0.4 mg Q 5 minutes p.r.n. Morphine 2 mg do 30 minute p.r.n. Losartan 50 mg daily Lovenox therapeutic dose Cardiology on board, planned for the left heart catheterization and possible PCI for tomorrow Vitamin-D deficiency Continue ergocalciferol History of COPD/asthma, stable Breathing treatment (ipratropium) as required Hyperchloremia Monitoring Dyslipidemia Continue atorvastatin History of back surgery, due to traumatic injury Follow up on outpatient basis DVT prophylax Therapeutic dose of Lovenox Diet Cardiac diet Code status Full Code Case discussed with Dr. Ramos Plan discussed with: Patient, Other (RN) Date of Service: Mar 24, 2024 Billing Provider: SIMBA RAMOS DO Common Visit Codes: [id number] INP/OBS CARE(HIGH) CADEFLORENTINMEGAN FELIZ [facility] Mar 24, 2024 11:43 SIMBA RAMOS DO Mar 26, 2024 19:39
[2024-03-24] MEDS: CLOPIDOGREL BISULFATE 75 MG TAB PO SCH (13:15)
[2024-03-24] MEDS: CLOPIDOGREL BISULFATE 75 MG TAB PO ONE (13:45)
[2024-03-24] MEDS: NTG 0.1MG/HR TOPICAL PATCH TD ONE (13:50)
[2024-03-24 14:14] LABS: INR 1.02 (0.9-1.15); Partial Thromboplastin Time 36.2 SEC (24.5-34.5); Prothrombin Time 10.8 sec (9.3-11.8)
--- NOTE | 2024-03-24 15:41 | DVHTSRES ---
Transfer Summary Transfer Summary Resident Creating Document: UNIQUE ARANAManda RESDIENT Date of Admission Mar 23, 2024 at 10:40 Date of Transfer: Mar 24, [address]-elevation HI Brief Hx & Hospital Course: Patient Summary for Transfer: Patient: 58-year-old male Chief Complaint: Chest pain for 4 days History of Present Illness: * Reports constant central chest pain, non-radiating, squeezing, 10/10, increased with physical activity and improved with rest. * History of sick contact with his grandson who had an upper respiratory tract infection; developed a green productive cough which has resolved, but chest pain persists. * Reports diaphoresis, nausea, and generalized weakness. * Denies headache, vomiting, dizziness, shortness of breath, abdominal pain, diarrhea, constipation, and other associated symptoms. * Past Medical History: Asthma, COPD (recommended to use inhaler, did not use) * Past Surgical History: Back surgery (due to traumatic injury) Diagnosis and Treatment Plan: ACS, NSTEMI: * Aspirin 75 mg daily * Atorvastatin 40 mg daily * Nitroglycerin sublingually 0.4 mg Q 5 minutes p.r.n. * Morphine 2 mg Q 30 minutes p.r.n. * Losartan 50 mg daily * Lovenox therapeutic dose Plan: * Cardiology on board, planned for left heart catheterization and possible PCI for tomorrow Transfer Status Watcher UNIQUETRINICADEADAN RESDIENT Mar 24, 2024 15:41 SIMBA RAMOS DO Mar 26, 2024 19:39
--- NOTE | 2024-03-24 19:11 | ECG ---
[facility] Test Date: 2024-03-23 Test Time: 22:43:41 Pat Name: TRE TANG Department: ER Room: 0218T Gender: M Back Sewer: PATRICIA : 1965 Requested By: CAM PÉREZ Order Number: [id number] Reading MD: Measurements Intervals Hinkle Rate: 53 P: 60 MD: 122 QRS: -7 QRSD: 110 T: 233 QT: 485 QTc: 456 Interpretive Statements Sinus rhythm RSR' in V1 or V2, right VCD or RVH Abnrm T, probable ischemia, anterolateral lds Please click the below link to view image of tracing.
[2024-03-25] VITALS (13 sets, daily range): BP systolic 104–164; BP diastolic 69–90; PULSE 55–80; RESP 12–21; TEMP 97.5–98.6; O2SAT 18–100
[2024-03-25] MEDS: DOCUSATE SOD 100 MG CAP PO ONE (06:29)
--- NOTE | 2024-03-25 07:40 | DVHSR ---
APPROVED REPORT EXAM: Two-dimensional and M-mode echocardiogram with Doppler and color Doppler. Blood Pressure: 145/91 mmHg INDICATION Chest Pain RISK FACTORS Height: 5' 11", Weight: 183 DIMENSIONS LVDd4.4 (3.8-5.7cm)LA (2D)3.4 (1.9-4.0cm)Aortic Root3.6 (2.0-3.7cm) LVDs3.0 (2.5-4.0cm)LA (MM) (1.9-4.0cm)Aortic Cusp Exc2.0 (1.5-2.0cm) EF (%) 60.0 (55-70%)Rt. Atrium3.3 (1.9-4.0cm)Asc. Aorta cm IVSd1.1 (0.7-1.1cm)RV (D) (1.8-2.4cm) PWd1.0 (0.7-1.1cm) Mitral Valve MitralMitral Stenosis E wave0.70m/sMV Mean GR.mmHg A wave1.00m/sMV Peak GR.mmHg E/A ratio0.72D MVAcm2 Aortic Valve Aortic ValveAortic Stenosis V10.90m/Ryann Mean GR.3mmHg V21.20m/Ryann Peak GR.6mmHg LVOT Diameter2.1 (1.8-2.4cm)Doppler AVA2.60cm2 Pulmonic Valve V20.50m/s Conclusion lvef 40-45% by visual estimate hypokientic apex and anteroseptum RV enlarged no sevee valve abnormalities noted
[2024-03-25] MEDS: NALOXEGOL OXALATE 25 MG PO SCH (10:00)
[2024-03-25] MEDS ORDERED: CLOPIDOGREL BISULFATE 75 MG TAB PO SCH (10:00)
[2024-03-25] MEDS: LOSARTAN POTASSIUM 50 MG TAB PO SCH (10:42)
[2024-03-25] MEDS: ACETAMINOPHEN 325 MG TAB PO PRN (10:43)
[2024-03-25] MEDS: IODIXANOL 320MG/ML 100ML BTL IV ONE (12:31)
--- NOTE | 2024-03-25 12:40 | DVHPN2 ---
Progress Note - Dictate Date Seen: Mar 25, 2024 Has the PT tested + for MRSA If YES, has PT been informed?: No Medical Necessity Reason Pt with a Central, PICC or Fol: No vital signs Vital Sign Date Time Temp Pulse Resp B/P (MAP) Pulse Ox O2 Delivery O2 Flow Rate FiO2 03/25/24 10:42 116/72 03/25/24 09:00 98.6 69 20 94 98.6 03/24/24 20:00 Room Air* 0 21 Total Intake and Output 03/24/24 03/24/24 03/25/24 15:00 23:00 07:00 Intake Total 840 ml 1334 ml Output Total 850 ml Balance 840 ml 484 ml medications Current Medications Medications Dose Ordered Sig/Cris Route Start Time Stop Time Status Last Admin Dose Admin Acetaminophen 650 mg Q6HP PRN PO 03/23/24 10:45 03/25/24 10:43 650 MG Nitroglycerin 0.4 mg Q5MINP PRN SL 03/23/24 10:45 03/23/24 16:20 0.4 MG Morphine Sulfate 2 mg Q30M PRN IV 03/23/24 10:45 03/24/24 01:55 2 MG Diazepam 5 mg HS PO 03/23/24 22:00 03/24/24 21:07 5 MG Ergocalciferol 50,000 unit QWEEKLY PO 03/23/24 10:45 Aspirin 81 mg DAILY PO 03/24/24 10:00 03/25/24 10:42 81 MG Atorvastatin Calcium 40 mg HS PO 03/23/24 22:00 03/24/24 21:07 40 MG Acetaminophen/ Hydrocodone Bitart 1 tab Q8HP PRN PO 03/23/24 19:00 03/25/24 06:29 1 TAB Losartan Potassium 50 mg DAILY PO 03/25/24 10:00 03/25/24 10:42 50 MG Patient Own Medication 1 tab DAILY PO 03/25/24 10:00 objective General Appearance: alert, no distress HEENT: EOMI, PERRLA, normal external inspect of ears, no icterus, no nasal drainage Neck: no carotid bruit, no jugular venous distention (JVD), no lymphadenopathy Chest: normal thorax Respiratory: clear to auscultation, normal air movement Cardiovascular: regular rate and rhythm, no diastolic murmur, no jugular venous distention (JVD), no rub, no systolic murmur Abdominal: soft, no hepatomegaly, no mass, no splenomegaly, no tenderness Genitourinary: grossly normal external Musculoskeletal: no joint tenderness, no swelling Extremities: normal pulses, no calf tenderness, no clubbing, no cyanosis, no edema Skin: no bruising, no jaundice, no rash Neurological: alert, No focal deficit laboratory and microbiology Laboratory Tests 03/24/24 05:31 Test 03/24/24 05:31 Range/Units Serum Glucose 92 74-106 mg/dL Problem List 1. Acute coronary syndrome Monitor, cardiology consult 2. Dizziness Monitor, echocardiogram 3. NSTEMI II Monitor, trend troponin 4. Benign essential HTN Monitor 5. Smoker Monitor, PPI 6. COPD Monitor, DVT prophylaxis 7. HLD Monitor, lipid panel Assessment/Plan Subjective Patient was not in room during assessment. Objective Patient was taken down to [facility] for acute coronary syndrome. Patient was seen by cardiology. Patient did have an NSTEMI. Plan Patient to have angiogram done by [facility]. Monitor EKG. Continue anticoagulation. Continue PPI. Plan discussed with: Patient, Other RONNY CONLEY NP Mar 25, 2024 12:40
[2024-03-25] MEDS: fentaNYL CITRATE 100 MCG/2 ML VL ONE (13:07)
[2024-03-25] MEDS: ANGIOMAX 250 MG VIAL IV ONE (13:07)
[2024-03-25] MEDS: LIDOCAINE 2%HCL (LOCAL ANESTH.) INJ 20ML MDV ONE (13:07)
[2024-03-25] MEDS: VERAPAMIL 2.5MG/ML INJ 2ML VIAL IV ONE (13:07)
[2024-03-25] MEDS: MIDAZOLAM HCL 2MG/2ML 2ml VIAL (1mg/ml) ONE (13:07)
[2024-03-25] MEDS: HEPARIN SODIUM (PORCINE) 5000 UNITS/ML 1ML VIAL ONE (13:07)
[2024-03-25] MEDS: SODIUM CHL 0.9% 50 ML ONE (13:07)
[2024-03-25] MEDS: ASPirin 81 mg TAB ONE (13:58)
[2024-03-25] MEDS: TICAGRELOR 90 MG TAB ONE (13:58)
--- NOTE | 2024-03-25 14:06 | DVHPN2 ---
Progress Note Date Seen: Mar 25, 2024 Has the PT tested + for MRSA If YES, has PT been informed?: No Medical Necessity Reason Pt with a Central, PICC or Fol: No Subjective Patient reports: Feels better Other Systems: pt doing well sp cath and pci Objective vital signs Vital Sign Date Time Temp Pulse Resp B/P (MAP) Pulse Ox O2 Delivery O2 Flow Rate FiO2 03/25/24 13:00 98.1 57 21 119/69 (86) 97 98.1 03/24/24 20:00 Room Air* 0 21 Total Intake and Output 03/24/24 03/24/24 03/25/24 15:00 23:00 07:00 Intake Total 840 ml 1334 ml Output Total 850 ml Balance 840 ml 484 ml medications Current Medications Medications Dose Ordered Sig/Cris Route Start Time Stop Time Status Last Admin Dose Admin Acetaminophen 650 mg Q6HP PRN PO 03/23/24 10:45 03/25/24 10:43 650 MG Nitroglycerin 0.4 mg Q5MINP PRN SL 03/23/24 10:45 03/23/24 16:20 0.4 MG Morphine Sulfate 2 mg Q30M PRN IV 03/23/24 10:45 03/24/24 01:55 2 MG Diazepam 5 mg HS PO 03/23/24 22:00 03/24/24 21:07 5 MG Ergocalciferol 50,000 unit QWEEKLY PO 03/23/24 10:45 Aspirin 81 mg DAILY PO 03/24/24 10:00 03/25/24 10:42 81 MG Atorvastatin Calcium 40 mg HS PO 03/23/24 22:00 03/24/24 21:07 40 MG Acetaminophen/ Hydrocodone Bitart 1 tab Q8HP PRN PO 03/23/24 19:00 03/25/24 06:29 1 TAB Losartan Potassium 50 mg DAILY PO 03/25/24 10:00 03/25/24 10:42 50 MG Patient Own Medication 1 tab DAILY PO 03/25/24 10:00 Pantoprazole Sodium 40 mg DAILY IV 03/26/24 10:00 Sennosides 8.6 mg HS PO 03/25/24 22:00 Examination: GENERAL:Abnormal, HEENT:Abnormal, LUNGS:Abnormal, CVS:Abnormal, ABDOMEN:Abnormal laboratory and microbiology Laboratory Tests 03/24/24 05:31 Test 03/24/24 05:31 Range/Units Serum Glucose 92 74-106 mg/dL Problem List/Assessment/Plan Problem List/Assessment/Plan ACS HTN HL s/p pci to 99% mid LAD stenosis cont dapt x 1 year statin beta henry monitor overnight Plan discussed with: Patient My Orders My Orders Orders - SHAWNA COREY MD Procedure Category Date Status Time Cl Left Heart Cath CL 03/25/24 Taken 07:36 Date of Service: Mar 25, 2024 Billing Provider: SHAWNA COREY MD Common Visit Codes: NOT BILLABLE SHAWNA COREY MD Mar 25, 2024 14:05
--- NOTE | 2024-03-25 14:09 | DVHOP2 ---
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 shockwave IVL, ptca 1 vessel, pci 1 vessel, conscious sedation 15-30 mins PREOPERATIVE DIAGNOSES: ACS POSTOP DIAGNOSIS: severe cad DESCRIPTION OF PROCEDURE: The patient or appropriate family signed informed consent understanding the risks, benefits and alternatives of the procedure, they wished to proceed. The patient was brought to the cardiac label sewer in n.p.o. state. The patient was prepped in a sterile fashion. Sedation was used per cardiac cath protocol. I administered 2 mL of 2% lidocaine to the right wrist. With an antegrade front wall puncture. I cannulated the right radial artery and placed a 6-Portuguese Glidesheath slender. Next, an intra-arterial spasmolytic was administered. Next, a - 5French [place] catheter andXB3 guide and were used for coronary angiogram and LVEDP measurement and pressure pullback. At the completion of procedure, all guides and wires were removed, and there were no immediate complications. FINDINGS: RCA: Moderate vessel off the right sinus of Valsalva, there is no severe flow limiting stenosis. LEFT MAIN: Moderate size left main, it bifurcates into LAD and circumflex. CIRCUMFLEX: Moderate caliber vessel coming off the left main with no flow limiting stenosis. LAD: LAD is a moderate caliber vessel coming of the left main. there is a 99% ruptured plaque with calcification noted in mid segment. INTERVENTION: We decided to proceed with coronary intervention. I started with a 6F __XB3__ Guide to intubate the LM __. Angiomax bolus and gtt was started. Following this, I decided to wire using an .014 BMW across the culprit lesion with ease. At this time, we performed balloon angioplasty with a _3 x 12 mm balloon by [employer] IVL balloon up to __3___ ATMS over __15__ seconds with __10 pulses each for total of 20 pulses__ number of inflations. Following this, I decided to place a stent using a 3.0 x 26 mm JOHN ____ stent inflated up to __18___ ATMS over 15 seconds with two separate inflations. Following this, the stent balloon removed and angio performed showing 0% residual stenosis. JAMILA pre/post: 3./3 CONCLUSIONS: 1. sp IVL and PCI to 99% mid LAD stenosis PLAN: Aggressive risk factor modification and medical management for the patient. DAPT x 1 year uninterrupted SAHWNA COREY MD Mar 25, 2024 14:09
[2024-03-25] MEDS: SENNA 8.6 MG TAB PO SCH (21:10)
[2024-03-25] MEDS: TICAGRELOR 90 MG TAB PO SCH (21:10)
[2024-03-26] VITALS (7 sets, daily range): BP systolic 117–150; BP diastolic 71–99; PULSE 65–95; RESP 16–18; TEMP 97.5–98.3; O2SAT 97–98
[2024-03-26] MEDS ORDERED: TICA90TA PO (09:56)
[2024-03-26] MEDS ORDERED: PANT40TA2 PO (09:56)
[2024-03-26] MEDS ORDERED: ATOR-507 PO (09:56)
[2024-03-26] MEDS ORDERED: ASPI-325 PO (09:56)
[2024-03-26] MEDS ORDERED: LOSA-534 PO (09:56)
[2024-03-26] MEDS ORDERED: MET25T PO (09:59)
[2024-03-26] MEDS: PANTOPRAZOLE 40 MG/10 ML VIAL INJ IV SCH (10:24)
--- NOTE | 2024-03-26 12:04 | DVHPN2 ---
Progress Note Date Seen: Mar 26, 2024 Has the PT tested + for MRSA If YES, has PT been informed?: No Medical Necessity Reason Pt with a Central, PICC or Fol: No Subjective Patient reports: Feels better Other Systems: pt doing well Objective vital signs Vital Sign Date Time Temp Pulse Resp B/P (MAP) Pulse Ox O2 Delivery O2 Flow Rate FiO2 03/26/24 10:25 146/98 03/26/24 08:05 Room Air* 0 21 03/26/24 05:00 97.5 71 18 97 97.5 Total Intake and Output 03/25/24 03/25/24 03/26/24 15:00 23:00 07:00 Intake Total 0 ml 250 ml Balance 0 ml 250 ml medications Current Medications Medications Dose Ordered Sig/Cris Route Start Time Stop Time Status Last Admin Dose Admin Acetaminophen 650 mg Q6HP PRN PO 03/23/24 10:45 03/25/24 17:48 650 MG Nitroglycerin 0.4 mg Q5MINP PRN SL 03/23/24 10:45 03/23/24 16:20 0.4 MG Morphine Sulfate 2 mg Q30M PRN IV 03/23/24 10:45 03/24/24 01:55 2 MG Diazepam 5 mg HS PO 03/23/24 22:00 03/24/24 21:07 5 MG Ergocalciferol 50,000 unit QWEEKLY PO 03/23/24 10:45 Aspirin 81 mg DAILY PO 03/24/24 10:00 03/26/24 10:24 81 MG Atorvastatin Calcium 40 mg HS PO 03/23/24 22:00 03/25/24 21:10 40 MG Acetaminophen/ Hydrocodone Bitart 1 tab Q8HP PRN PO 03/23/24 19:00 03/26/24 10:32 1 TAB Losartan Potassium 50 mg DAILY PO 03/25/24 10:00 03/26/24 10:25 50 MG Patient Own Medication 1 tab DAILY PO 03/25/24 10:00 Pantoprazole Sodium 40 mg DAILY IV 03/26/24 10:00 03/26/24 10:24 40 MG Sennosides 8.6 mg HS PO 03/25/24 22:00 03/25/24 21:10 8.6 MG Ticagrelor 90 mg BID PO 03/25/24 22:00 03/26/24 10:25 90 MG Examination: GENERAL:Abnormal, HEENT:Abnormal, LUNGS:Abnormal, CVS:Abnormal, ABDOMEN:Abnormal laboratory and microbiology Laboratory Tests 03/24/24 05:31 Test 03/24/24 05:31 Range/Units Serum Glucose 92 74-106 mg/dL Problem List/Assessment/Plan Problem List/Assessment/Plan ACS HTN HL s/p pci to 99% mid LAD stenosis cont dapt x 1 year statin beta henry dc home when medically stable fu 4 weeks Plan discussed with: Patient My Orders My Orders Orders - SHAWNA COREY MD Procedure Category Date Status Time Ticagrelor (Brilinta) PHA 03/25/24 In Process 22:00 Post Cath Vital Signs BRIT 03/25/24 In Process Q 15min Post Cath Activity BRIT 03/25/24 In Process Protocol 14:52 Communication Order ORDERS 03/25/24 Transmitted 14:52 2 Gm Sodium Diet DIET 03/25/24 Transmitted Dinner Date of Service: Mar 26, 2024 Billing Provider: SHAWNA COREY MD Common Visit Codes: NOT BILLABLE SHAWNA COREY MD Mar 26, 2024 12:04
--- NOTE | 2024-03-26 19:24 | DVHDS2 ---
Discharge Summary Date of Admission Mar 23, 2024 at 10:40 Date of Discharge: Mar 26, 2024 Labs/Diagnostic Data: Laboratory Results Test 03/24/24 13:30 03/24/24 05:31 03/23/24 18:30 03/23/24 09:01 Prothrombin Time 10.8 sec (9.3-11.8) Prothrombin Time INR 1.02 (0.9-1.15) Activated Partial Thromboplast Time 36.2 SEC (24.5-34.5) White Blood Count 9.9 10^3/uL (4.4-10.8) Red Blood Count 4.35 10^6/uL (4.5-5.90) Hemoglobin 13.5 g/dL (13.5-17.5) Hematocrit 40.1 % (41.0-53.0) Mean Corpuscular Volume 92.2 fL (80.0-100.0) Mean Corpuscular Hemoglobin 31.0 pg (28.0-32.0) Mean Corpuscular Hemoglobin Concent 33.6 g/dL (32.0-36.0) Red Cell Distribution Width 13.8 % (11.8-14.3) Platelet Count 243 10^3/uL (140-450) Mean Platelet Volume 8.7 fL (6.9-10.8) Neutrophils (%) (Auto) 65.0 % (37.0-80.0) Lymphocytes (%) (Auto) 26.6 % (10.0-50.0) Monocytes (%) (Auto) 5.5 % (0.0-12.0) Eosinophils (%) (Auto) 2.3 % (0.0-7.0) Basophils (%) (Auto) 0.6 % (0.0-2.0) Neutrophils # (Auto) 6.4 10 ^3/uL (1.6-8.6) Lymphocytes # (Auto) 2.6 10 ^3/uL (0.4-5.4) Monocytes # (Auto) 0.5 10 ^3/uL (0-1.3) Eosinophils # (Auto) 0.2 10 ^3/uL (0-0.8) Basophils # (Auto) 0.1 10 ^3/uL (0-0.2) Nucleated Red Blood Cells 0.2 % Sodium Level 141 mmol/L (136-145) Potassium Level 4.2 mmol/L (3.5-5.1) Chloride Level 111 mmol/L (98-107) Carbon Dioxide Level 23 mmol/L (20-31) Anion Gap 7 (5-15) Blood Urea Nitrogen 19 mg/dL (9-23) Creatinine 1.00 mg/dL (0.700-1.30) Glomerular Filtration Rate Calc 88 mL/min (>90) BUN/Creatinine Ratio 19.0 (10.0-20.0) Serum Glucose 92 mg/dL (74-106) Calcium Level 9.5 mg/dL (8.7-10.4) Total Bilirubin 0.2 mg/dL (0.2-1.0) Aspartate Amino Transferase (AST) 11 U/L (13-40) Alanine Aminotransferase (ALT) < 9 U/L (7-40) Alkaline Phosphatase 75 U/L (46-116) Troponin I High Sensitivity 94 ng/L (</=54) Total Protein 5.9 g/dL (5.7-8.2) Albumin 3.9 g/dL (3.2-4.8) Urine Opiates Screen Pos (NEGATIVE) Urine Fentanyl Screen Neg (NEGATIVE) Urine Barbiturates Screen Neg (NEGATIVE) Urine Phencyclidine Screen Neg (NEGATIVE) Urine Amphetamines Screen Neg (NEGATIVE) Urine Benzodiazepines Screen Neg (NEGATIVE) Urine Cocaine Screen Neg (NEGATIVE) Urine Cannabinoids Screen Neg (NEGATIVE) Triglycerides Level 149 mg/dL (< 150) Cholesterol Level 219 mg/dL (< 200) LDL Cholesterol 161 mg/dL (< 100) HDL Cholesterol 40 mg/dL (40-59) Thyroid Stimulating Hormone (TSH) 0.83 uIU/mL (0.55-4.78) Other Laboratory Tests 03/24/24 05:31 Brief Hx & Hospital Course: Patient was admitted for acute coronary syndrome. He was found to be an NSTEMI. Patient was seen by cardiology. He had an angiogram yesterday by Dr. Melendrez. Patient is status post IVL and PCI. Patient was started on dual anti platelet therapy with Aspirin and Brilinta. I did discuss plan of care with patient and patient's . Patient will have minimal weight bearing to upper extremities for the next 2 days. Patient may take 1 week off work. Patient will have uninterrupted therapy for 1 year with dual anti platelet therapy with Aspirin and Brilinta. Patient was also given a prescription for Lipitor, Losartan, and Metoprolol. Patient's total cholesterol is 219. LDL is 161. Patient will follow up with his PCP in 1 week. The patient received proper medical treatment and medications. Vital signs, Imaging and Laboratory Work was monitored. All consults recommendations were followed as provided. There were no complaints or new complaints upon discharge, all questions and concerns were answered. Patient was advised to return to the ER or call 911 if any headaches, dizziness, shortness of breath, chest pain, bleeding, fevers, or worsening of medical condition. Patient/Family was counseled about treatment plan, medications, possible side effects, patientverbalized understanding. All questions were answered to the best of my ability. The patient symptoms improved and they are okay to be DC. Condition at Discharge: Stable Final Diagnosis/Problems List Acute coronary syndrome Dizziness NSTEMI II Benign essential HTN Smoker COPD HLD Discharge Disposition: Home Discharge Instruct/Medications Diet: Cardiac 2g Na,low cholest Activity: No Restrictions, As Tolerated Follow Up/Referral: pcp 1 week cardiology 1-2 weeks Medications: ASA Brinlinta Protonix Losartan Lipitor Discharge Statement: "Patient was advised to return to the ER or call 911 if any headaches, dizziness, shortness of breath, chest pain, abdominal pain, bleeding, fevers, or worsening of medical condition. Patient was counseled about treatment plan, medications, possible side effects, patientverbalized understanding. All questions were answered to the best of my ability. This discharge took greater then 30 minutes in planning, reviewing documentation, counseling the patient, and discussing with other team members." ASSESSMENT ASSESSMENT Assessment ACS, s/p stent to mid LAD HTN High cholesterol RONNY CONLEY NP Mar 26, 2024 19:24
[2024-03-27 01:00] VITALS: BP 107/68; PULSE 69; RESP 19; TEMP 98.5; O2SAT 96
[2024-03-27 05:00] VITALS: BP 112/72; PULSE 62; RESP 17; TEMP 98.1; O2SAT 96
--- NOTE | 2024-03-27 07:31 | DVHPN2 ---
Progress Note Date Seen: Mar 27, 2024 Has the PT tested + for MRSA If YES, has PT been informed?: No Medical Necessity Reason Pt with a Central, PICC or Fol: No Subjective Other Systems: sp pci Objective vital signs Vital Sign Date Time Temp Pulse Resp B/P (MAP) Pulse Ox O2 Delivery O2 Flow Rate FiO2 03/27/24 05:00 98.1 62 17 112/72 (85) 96 98.1 03/26/24 20:00 Room Air* 0 21 Total Intake and Output 03/26/24 03/26/24 03/27/24 14:59 22:59 06:59 Intake Total 240 ml 300 ml 300 ml Balance 240 ml 300 ml 300 ml medications Current Medications Medications Dose Ordered Sig/Cris Route Start Time Stop Time Status Last Admin Dose Admin Acetaminophen 650 mg Q6HP PRN PO 03/23/24 10:45 03/25/24 17:48 650 MG Nitroglycerin 0.4 mg Q5MINP PRN SL 03/23/24 10:45 03/23/24 16:20 0.4 MG Morphine Sulfate 2 mg Q30M PRN IV 03/23/24 10:45 03/24/24 01:55 2 MG Diazepam 5 mg HS PO 03/23/24 22:00 03/24/24 21:07 5 MG Ergocalciferol 50,000 unit QWEEKLY PO 03/23/24 10:45 Aspirin 81 mg DAILY PO 03/24/24 10:00 03/26/24 10:24 81 MG Atorvastatin Calcium 40 mg HS PO 03/23/24 22:00 03/26/24 21:02 40 MG Acetaminophen/ Hydrocodone Bitart 1 tab Q8HP PRN PO 03/23/24 19:00 03/26/24 21:04 1 TAB Losartan Potassium 50 mg DAILY PO 03/25/24 10:00 03/26/24 10:25 50 MG Patient Own Medication 1 tab DAILY PO 03/25/24 10:00 Pantoprazole Sodium 40 mg DAILY IV 03/26/24 10:00 03/26/24 10:24 40 MG Sennosides 8.6 mg HS PO 03/25/24 22:00 03/26/24 21:02 8.6 MG Ticagrelor 90 mg BID PO 03/25/24 22:00 03/26/24 21:02 90 MG Examination: GENERAL:Abnormal, HEENT:Abnormal, LUNGS:Abnormal, CVS:Abnormal, ABDOMEN:Abnormal laboratory and microbiology Laboratory Tests 03/24/24 05:31 Test 03/24/24 05:31 Range/Units Serum Glucose 92 74-106 mg/dL Problem List/Assessment/Plan Problem List/Assessment/Plan ACS HTN HL s/p pci to 99% mid LAD stenosis cont dapt x 1 year statin beta henry dc home when medically stable fu 4 weeks 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
[2024-03-27 09:00] VITALS: BP 122/83; PULSE 72; RESP 20; TEMP 98.1; O2SAT 96
--- NOTE | 2024-03-27 11:05 | DVHDS2 ---
Discharge Summary Date of Admission Mar 23, 2024 at 10:40 Date of Discharge: Mar 26, 2024 Labs/Diagnostic Data: Laboratory Results Test 03/24/24 13:30 03/24/24 05:31 03/23/24 18:30 03/23/24 09:01 Prothrombin Time 10.8 sec (9.3-11.8) Prothrombin Time INR 1.02 (0.9-1.15) Activated Partial Thromboplast Time 36.2 SEC (24.5-34.5) White Blood Count 9.9 10^3/uL (4.4-10.8) Red Blood Count 4.35 10^6/uL (4.5-5.90) Hemoglobin 13.5 g/dL (13.5-17.5) Hematocrit 40.1 % (41.0-53.0) Mean Corpuscular Volume 92.2 fL (80.0-100.0) Mean Corpuscular Hemoglobin 31.0 pg (28.0-32.0) Mean Corpuscular Hemoglobin Concent 33.6 g/dL (32.0-36.0) Red Cell Distribution Width 13.8 % (11.8-14.3) Platelet Count 243 10^3/uL (140-450) Mean Platelet Volume 8.7 fL (6.9-10.8) Neutrophils (%) (Auto) 65.0 % (37.0-80.0) Lymphocytes (%) (Auto) 26.6 % (10.0-50.0) Monocytes (%) (Auto) 5.5 % (0.0-12.0) Eosinophils (%) (Auto) 2.3 % (0.0-7.0) Basophils (%) (Auto) 0.6 % (0.0-2.0) Neutrophils # (Auto) 6.4 10 ^3/uL (1.6-8.6) Lymphocytes # (Auto) 2.6 10 ^3/uL (0.4-5.4) Monocytes # (Auto) 0.5 10 ^3/uL (0-1.3) Eosinophils # (Auto) 0.2 10 ^3/uL (0-0.8) Basophils # (Auto) 0.1 10 ^3/uL (0-0.2) Nucleated Red Blood Cells 0.2 % Sodium Level 141 mmol/L (136-145) Potassium Level 4.2 mmol/L (3.5-5.1) Chloride Level 111 mmol/L (98-107) Carbon Dioxide Level 23 mmol/L (20-31) Anion Gap 7 (5-15) Blood Urea Nitrogen 19 mg/dL (9-23) Creatinine 1.00 mg/dL (0.700-1.30) Glomerular Filtration Rate Calc 88 mL/min (>90) BUN/Creatinine Ratio 19.0 (10.0-20.0) Serum Glucose 92 mg/dL (74-106) Calcium Level 9.5 mg/dL (8.7-10.4) Total Bilirubin 0.2 mg/dL (0.2-1.0) Aspartate Amino Transferase (AST) 11 U/L (13-40) Alanine Aminotransferase (ALT) < 9 U/L (7-40) Alkaline Phosphatase 75 U/L (46-116) Troponin I High Sensitivity 94 ng/L (</=54) Total Protein 5.9 g/dL (5.7-8.2) Albumin 3.9 g/dL (3.2-4.8) Urine Opiates Screen Pos (NEGATIVE) Urine Fentanyl Screen Neg (NEGATIVE) Urine Barbiturates Screen Neg (NEGATIVE) Urine Phencyclidine Screen Neg (NEGATIVE) Urine Amphetamines Screen Neg (NEGATIVE) Urine Benzodiazepines Screen Neg (NEGATIVE) Urine Cocaine Screen Neg (NEGATIVE) Urine Cannabinoids Screen Neg (NEGATIVE) Triglycerides Level 149 mg/dL (< 150) Cholesterol Level 219 mg/dL (< 200) LDL Cholesterol 161 mg/dL (< 100) HDL Cholesterol 40 mg/dL (40-59) Thyroid Stimulating Hormone (TSH) 0.83 uIU/mL (0.55-4.78) Other Laboratory Tests 03/24/24 05:31 Brief Hx & Hospital Course: Patient was admitted for acute coronary syndrome. He was found to be an NSTEMI. Patient was seen by cardiology. He had an angiogram yesterday by Dr. Melendrez. Patient is status post IVL and PCI. Patient was started on dual anti platelet therapy with Aspirin and Brilinta. I did discuss plan of care with patient and patient's . Patient will have minimal weight bearing to upper extremities for the next 2 days. Patient may take 1 week off work. Patient will have uninterrupted therapy for 1 year with dual anti platelet therapy with Aspirin and Brilinta. Patient was also given a prescription for Lipitor, Losartan, and Metoprolol. Patient's total cholesterol is 219. LDL is 161. Patient will follow up with his PCP in 1 week. The patient received proper medical treatment and medications. Vital signs, Imaging and Laboratory Work was monitored. All consults recommendations were followed as provided. There were no complaints or new complaints upon discharge, all questions and concerns were answered. Patient was advised to return to the ER or call 911 if any headaches, dizziness, shortness of breath, chest pain, bleeding, fevers, or worsening of medical condition. Patient/Family was counseled about treatment plan, medications, possible side effects, patientverbalized understanding. All questions were answered to the best of my ability. The patient symptoms improved and they are okay to be DC. Condition at Discharge: Good Final Diagnosis/Problems List Acute coronary syndrome Dizziness NSTEMI II Benign essential HTN Smoker COPD HLD Discharge Disposition: Home Discharge Instruct/Medications Diet: Cardiac 2g Na,low cholest Activity: No Restrictions, As Tolerated Follow Up/Referral: pcp 1 week cardiology 1-2 weeks Medications: ASA Brinlinta Protonix Losartan Lipitor Discharge Statement: "Patient was advised to return to the ER or call 911 if any headaches, dizziness, shortness of breath, chest pain, abdominal pain, bleeding, fevers, or worsening of medical condition. Patient was counseled about treatment plan, medications, possible side effects, patientverbalized understanding. All questions were answered to the best of my ability. This discharge took greater then 30 minutes in planning, reviewing documentation, counseling the patient, and discussing with other team members." ASSESSMENT ASSESSMENT Hospital Course Patient was admitted for acute coronary syndrome. He was found to be an NSTEMI. Patient was seen by cardiology. He had an angiogram yesterday by Dr. Melendrez. Patient is status post IVL and PCI. Patient was started on dual anti platelet therapy with Aspirin and Brilinta. I did discuss plan of care with patient and patient's . Patient will have minimal weight bearing to upper extremities for the next 2 days. Patient may take 1 week off work. Patient will have uninterrupted therapy for 1 year with dual anti platelet therapy with Aspirin and Brilinta. Patient was also given a prescription for Lipitor, Losartan, and Metoprolol. Patient's total cholesterol is 219. LDL is 161. Patient will follow up with his PCP in 1 week. The patient received proper medical treatment and medications. Vital signs, Imaging and Laboratory Work was monitored. All consults recommendations were followed as provided. There were no complaints or new complaints upon discharge, all questions and concerns were answered. Patient was advised to return to the ER or call 911 if any headaches, dizziness, shortness of breath, chest pain, bleeding, fevers, or worsening of medical condition. Patient/Family was counseled about treatment plan, medications, possible side effects, patientverbalized understanding. All questions were answered to the best of my ability. The patient symptoms improved and they are okay to be DC. Assessment Acute coronary syndromeDizzinessNSTEMI IIBenign essential HTNSmokerCOPDHLD RONNY CONLEY NP Mar 27, 2024 11:05
[2024-03-27 12:55] VITALS: BP 129/88; PULSE 81; RESP 20; TEMP 98.6; O2SAT 99
--- NOTE | 2024-03-27 17:32 | DVHPN2 ---
Progress Note - Dictate Date Seen: Mar 27, 2024 Has the PT tested + for MRSA If YES, has PT been informed?: No Medical Necessity Reason Pt with a Central, PICC or Fol: No vital signs Vital Sign Date Time Temp Pulse Resp B/P (MAP) Pulse Ox O2 Delivery O2 Flow Rate FiO2 03/27/24 12:55 98.6 81 20 129/88 (102) 99 98.6 03/27/24 08:05 Room Air* 0 21 Total Intake and Output 03/26/24 03/26/24 03/27/24 15:00 23:00 07:00 Intake Total 240 ml 300 ml 300 ml Balance 240 ml 300 ml 300 ml objective General Appearance: alert, no distress HEENT: EOMI, PERRLA, normal external inspect of ears, no icterus, no nasal drainage Neck: no carotid bruit, no jugular venous distention (JVD), no lymphadenopathy Chest: normal thorax Respiratory: clear to auscultation, normal air movement Cardiovascular: regular rate and rhythm, no diastolic murmur, no jugular venous distention (JVD), no rub, no systolic murmur Abdominal: soft, no hepatomegaly, no mass, no splenomegaly, no tenderness Genitourinary: grossly normal external Musculoskeletal: no joint tenderness, no swelling Extremities: normal pulses, no calf tenderness, no clubbing, no cyanosis, no edema Skin: no bruising, no jaundice, no rash Neurological: alert, No focal deficit laboratory and microbiology Laboratory Tests 03/24/24 05:31 Test 03/24/24 05:31 Range/Units Serum Glucose 92 74-106 mg/dL Problem List 1. Acute coronary syndrome Monitor, cardiology consult 2. Dizziness Monitor, echocardiogram 3. NSTEMI II Monitor, trend troponin 4. Benign essential HTN Monitor 5. Smoker Monitor, PPI 6. COPD Monitor, DVT prophylaxis 7. HLD Monitor, lipid panel Assessment/Plan Subjective Patient is awake and alert. Objective Patient was unable to be discharged because pharmacy would not have Brilinta until AM. Plan Continue current treatment and monitor until discharge is possible. Monitor EKG. Plan discussed with: Patient, Other RONNY CONLEY NP Mar 27, 2024 17:32
== END 2024-03-27 14:00 | disposition home or self-care (01) | DRG 323 ==
LOC: ER 07:54 → TELE 10:40 → TELE-CENTR 10:42
PROVIDERS: ATTEND Nurse Practitioner
PROC: 027034Z Dilation of Coronary Artery, One Artery with Drug-eluting Intraluminal Device, Percutaneous Approach (ICD-10-PCS; principal; 2024-03-25)
PROC: 02F03ZZ Fragmentation in Coronary Artery, One Artery, Percutaneous Approach (ICD-10-PCS; 2024-03-25)
PROC: 4A023N7 Measurement of Cardiac Sampling and Pressure, Left Heart, Percutaneous Approach (ICD-10-PCS; 2024-03-25)
PROC: B211YZZ Fluoroscopy of Multiple Coronary Arteries using Other Contrast (ICD-10-PCS; 2024-03-25)
DX: I25.10 Atherosclerotic heart disease of native coronary artery without angina pectoris (principal); I21.A1 Myocardial infarction type 2; E78.5 Hyperlipidemia, unspecified; F17.210 Nicotine dependence, cigarettes, uncomplicated; I10 Essential (primary) hypertension; J44.89 Other specified chronic obstructive pulmonary disease; G89.29 Other chronic pain; E87.8 Other disorders of electrolyte and fluid balance, not elsewhere classified; E55.9 Vitamin D deficiency, unspecified; E78.00 Pure hypercholesterolemia, unspecified; Z79.899 Other long term (current) drug therapy
CPT/HCPCS: 36415; 71045; 80053; 80061; 80307; 84443; 84484; 85025; 85610; 85730; 86850; 86900; 86901; 92941; 92972; 93005; 93306; 93458; 96372; 99152; 99291; G0378; J2250; J2470; Q9967

== ENCOUNTER → 2024-06-20 | Outpatient (CLI) | payer OTHER, MEDICAID ==
[~2024-06-20] MED LIST: ASPI-325 PO; ATOR-507 PO; DIAZ5TAB3 PO; ERGO1CAP12 PO; LOSA-534 PO; MET25T PO; NALO1TAB4 PO; PANT40TA2 PO; TICA90TA PO
== END | disposition home or self-care (01) ==
LOC: Rad HDHVI 08:06
PROVIDERS: ATTEND Internal Medicine Cardiovascular Disease
DX: R06.02 Shortness of breath (principal)
CPT/HCPCS: 93306

== ENCOUNTER → 2024-07-19 | Outpatient (CLI) | payer OTHER, MEDICAID ==
[2024-07-19 09:50] LABS: Urine Bacteria None Seen /hpf (None Seen)
[2024-07-19 10:24] LABS: Urine Blood Negative /uL (Negative); Urine Clarity Clear (Clear); Urine Color Yellow (Yellow); Urine Mucus FEW (None Seen); Urine Protein, UAD Negative (Negative); Urine Specific Gravity 1.024 (1.001-1.035); Urine Squamous Epithelial Cell None Seen /hpf (<5); Urine Urobilinogen Normal (Negative); Urine WBC < 1 /HPF (0-3); Urine pH 6.5 (5.0-9.0)
[2024-07-19 10:27] LABS: Basophils # (auto) 0.1 10 ^3/uL (0-0.2); Basophils % (auto) 0.5 % (0.0-2.0); Eosinophils # (auto) 0.2 10 ^3/uL (0-0.8); Eosinophils % (auto) 1.6 % (0.0-7.0); Hematocrit 41.6 % (41.0-53.0); Lymphocytes # (auto) 2.1 10 ^3/uL (0.4-5.4); Lymphocytes % (auto) 21.8 % (10.0-50.0); Mean Corpuscular Hemoglobin 31.4 pg (28.0-32.0); Mean Corpuscular Hgb Conc. 33.7 g/dL (32.0-36.0); Mean Corpuscular Volume 93.1 fL (80.0-100.0); Monocytes # (auto) 0.4 10 ^3/uL (0-1.3); Monocytes % (auto) 4.1 % (0.0-12.0); Neutrophils # (auto) 7.1 10 ^3/uL (1.6-8.6); Platelet Count (auto) 264 10^3/uL (140-450); Red Blood Cells 4.47 10^6/uL (4.5-5.90); Red Cell Distribution Width 14.3 % (11.8-14.3); White Blood Cell 9.8 10^3/uL (4.4-10.8)
[2024-07-19 11:04] LABS: Alanine Aminotransferase < 9 U/L (7-40); Albumin 4.6 g/dL (3.2-4.8); Alkaline Phosphatase 90 U/L (46-116); Anion Gap 6 (5-15); Aspartate Aminotransferase 17 U/L (13-40); BUN/Creatinine Ratio 9.7 (10.0-20.0); Bilirubin, Total 0.3 mg/dL (0.2-1.0); Blood Urea Nitrogen 11 mg/dL (9-23); Carbon Dioxide 27 mmol/L (20-31); Chloride 107 mmol/L (98-107); Cholesterol 135 mg/dL (< 200); Glucose 96 mg/dL (74-106); HDL Cholesterol 32 mg/dL (40-59); LDL Cholesterol 84 mg/dL (< 100); Potassium 4.5 mmol/L (3.5-5.1); Sodium 140 mmol/L (136-145); Total Protein 7.2 g/dL (5.7-8.2); Triglycerides 117 mg/dL (< 150)
== END | disposition home or self-care (01) ==
LOC: LAB 09:23
PROVIDERS: ATTEND Internal Medicine
DX: I24.9 Acute ischemic heart disease, unspecified (principal); E78.5 Hyperlipidemia, unspecified; R06.02 Shortness of breath
CPT/HCPCS: 36415; 80053; 80061; 81001; 83036; 84439; 84443; 85025

== ENCOUNTER → 2024-07-23 | Outpatient (CLI) | payer OTHER, MEDICAID ==
[~2024-07-23] VITALS: Ht 180.3 cm; Wt 88.9 kg
--- NOTE | 2024-07-30 15:06 | DVHSR ---
APPROVED REPORT Exam: Nuclear Stress Test Indication: CAD s/p IN, PTCA Ht: 5 ft 11 in Wt: 196 lbs BSA: 2.09 m2 HR: 58 bpm BP: 128/80 mmHg BMI: 27.33 Rhythm: Bradycardia Medical History Medical History: Chest pain, SOB, IN, Stent, HTN, Hyperlipidemia, Smoking Medications: Lipitor, Losartan, Pantoprazole, Clopidogrel, Metoprolol tartrate, Aspirin, [place], [place] in, [place] Allergies: No known drug allergies Stress Test Details Stress Test: Exercise stress testing was performed using a Franky protocol. HR Resting HR: 58 bpmMax Heart Rate (APMHR): 163.242519 bpm Max HR Achieved: 151 bpmTarget HR (85% APMHR): 138.314142 bpm % of APMHR: 92.64 Recovery HR: 78 bpm HR response to stress: Normal HR response to stress BP Resting BP: 128/80 mmHg Max BP: 203/62 mmHg Recovery BP: 124/79 mmHg BP response to stress: Exaggerated response ECG Resting ECG: Sinus Bradycardia Stress ECG: Sinus Tachycardia Arrhythmia: PAC, PVC Recovery ECG: Sinus Rhythm Clinical Reason for Termination: Target HR achieved Stress Symptoms: Fatigue, Mild dyspnea Exercise duration: 8 min 10 sec Exercise capacity: 10.1 METs Symptoms resolved during recovery. Stress ECG Conclusion NON ISCHEMIC CLINICAL RESPONSE NON ISCHEMIC ECG RESPONSE PERFUSION SCAN SHOWS LESS THAN 10% LIKELIHOOD FOR STRESS INDUCED ISCHEMIA EF >55% NM EXAM: Myocardial Perfusion REST/STRESS Imaging Protocol: Rest Tc-99m/Stress Tc-99m 1 day Resting Data Rest SPECT myocardial perfusion imaging was performed in supine position 30 minutes following the int ravenous injection of 10.79 mCi of Tc-99m Sestamibi. Time of rest injection: 841 Time of rest imagin Administration Route: IV Administration Site: Left AC Exercise Stress At peak stress, the patient was injected intravenously with 32.6 mCi of Tc-99m Sestamibi. Time of stress injection: 939 Time of stress imagin Administration Route: IV Administration Site: Left AC Heart Rate at time of stress injection: 150 bpm. Patient continued to exercise for 1 minute(s). Gated Stress SPECT was performed 15 minutes after stress injection. The images were gated to evaluate regional wall motion and calculate left ventricular ejection fracti on. Comments Cardiolite injection at 7 minutes, 8 seconds into test. Study Data Post stress, the left ventricular ejection was >55%.. Nuclear Conclusion NON ISCHEMIC CLINICAL RESPONSE NON ISCHEMIC ECG RESPONSE PERFUSION SCAN SHOWS LESS THAN 10% LIKELIHOOD FOR STRESS INDUCED ISCHEMIA EF >55%
== END | disposition home or self-care (01) ==
LOC: Rad HDHVI 08:27
PROVIDERS: ATTEND Internal Medicine Cardiovascular Disease
DX: I10 Essential (primary) hypertension (principal); I25.10 Atherosclerotic heart disease of native coronary artery without angina pectoris; I25.2 Old myocardial infarction; I25.9 Chronic ischemic heart disease, unspecified; R06.02 Shortness of breath; R07.89 Other chest pain; E78.5 Hyperlipidemia, unspecified; F17.210 Nicotine dependence, cigarettes, uncomplicated; R00.1 Bradycardia, unspecified; R00.0 Tachycardia, unspecified; I49.3 Ventricular premature depolarization
CPT/HCPCS: 78452; 93017; A9500; 96374

== ENCOUNTER → 2024-12-20 | Outpatient (CLI) | payer OTHER, MEDICAID ==
[2024-12-20 10:37] LABS: Hematocrit 41.2 % (41.0-53.0); Hemoglobin 13.8 g/dL (13.5-17.5); Mean Corpuscular Hemoglobin 30.9 pg (28.0-32.0); Mean Corpuscular Volume 92.4 fL (80.0-100.0); Nucleated Red Blood Cells % 0.1 %
[2024-12-20 10:47] LABS: Urine Protein, UAD Negative (Negative)
[2024-12-20 11:05] LABS: Albumin 4.5 g/dL (3.2-4.8); Alkaline Phosphatase 85 U/L (46-116); Anion Gap 5 (5-15); BUN/Creatinine Ratio 8.9 (10.0-20.0); Bilirubin, Direct 0.1 mg/dL (<0.3); Blood Urea Nitrogen 10 mg/dL (9-23); Calcium 9.5 mg/dL (8.7-10.4); Carbon Dioxide 28 mmol/L (20-31); Cholesterol 114 mg/dL (< 200); Glucose 98 mg/dL (74-106); Potassium 4.5 mmol/L (3.5-5.1); Sodium 143 mmol/L (136-145); Total Protein 6.7 g/dL (5.7-8.2); Triglycerides 76 mg/dL (< 150)
[2024-12-20 11:06] LABS: Alanine Aminotransferase < 9 U/L (7-40); Bilirubin, Total 0.3 mg/dL (0.2-1.0); Chloride 110 mmol/L (98-107); HDL Cholesterol 33 mg/dL (40-59)
== END | disposition home or self-care (01) ==
LOC: LAB 10:15
PROVIDERS: ATTEND Internal Medicine Cardiovascular Disease
DX: C61 Malignant neoplasm of prostate (principal); I10 Essential (primary) hypertension; E11.9 Type 2 diabetes mellitus without complications; D64.9 Anemia, unspecified; E55.9 Vitamin D deficiency, unspecified; R00.2 Palpitations
CPT/HCPCS: 36415; 80048; 80061; 80076; 81003; 83036; 84153; 84403; 84443; 85025

== ENCOUNTER 2025-02-19 08:02 | Outpatient (CLI) | payer OTHER, MEDICAID ==
--- NOTE | 2025-02-19 13:15 | DVHSR ---
APPROVED REPORT EXAM: Two-dimensional and M-mode echocardiogram with Doppler and color Doppler. DIMENSIONS LVDd4.9 (3.8-5.7cm)LA (2D)3.4 (1.9-4.0cm)Aortic Root3.3 (2.0-3.7cm) LVDs3.1 (2.5-4.0cm)LA (MM) (1.9-4.0cm)Aortic Cusp Exc2.1 (1.5-2.0cm) EF (%) 55.0 (55-70%)Rt. Atrium3.5 (1.9-4.0cm)Asc. Aorta3.4 cm IVSd0.7 (0.7-1.1cm)RV (D)3.9 (1.8-2.4cm) PWd0.9 (0.7-1.1cm) Mitral Valve MitralMitral Stenosis E wave0.61m/sMV Mean GR.mmHg A wave0.74m/sMV Peak GR.mmHg E/A ratio0.82D MVAcm2 DECEL [id number] 1/2 [place] Aortic Valve Aortic ValveAortic Stenosis V10.95m/Ryann Mean GR.2mmHg V21.15m/Ryann Peak GR.5mmHg LVOT Diameter2.0 (1.8-2.4cm)Doppler AVA2.59cm2 Pulmonic Valve V20.96m/s Tricuspid Valve TR Velocity2.36m/s [id number] LEFT VENTRICLE The left ventricle is normal size. The left ventricle is normal in structure and function. The Ejection Fraction is within normal limits. The Ejection Fraction is 55-60%. RIGHT VENTRICLE The right ventricle is normal size. ATRIA The left atrial size is normal. The right atrium size is normal. The interatrial septum is intact with no evidence for an atrial septal defect. MITRAL VALVE The mitral valve is normal in structure and function. Mitral regurgitation is trace. PULMONIC VALVE The pulmonic valve is not well visualized. There is trace to mild pulmonic valvular regurgitation. TRICUSPID VALVE The tricuspid valve is grossly normal. There is mild tricuspid regurgitation. AORTIC VALVE The aortic valve opens well. No aortic regurgitation is present. GREAT VESSELS The aortic root is normal size. PERICARDIAL EFFUSION There is no pericardial effusion. Conclusion MILD TR EF >55%
== END 2025-02-19 17:00 | disposition home or self-care (01) ==
LOC: Rad HDHVI 08:02
PROVIDERS: ATTEND Internal Medicine Cardiovascular Disease
DX: I08.8 Other rheumatic multiple valve diseases (principal); R06.02 Shortness of breath
CPT/HCPCS: 93306